=== PATIENT | female | born 1955 | race Caucasian/White ===

== ENCOUNTER 2023-12-18 12:07 | Emergency (ER) | payer OTHER, SELFPAY ==
[2023-12-18 13:06] LABS: Absolute Basophils 0.1 K/uL (0-0.5); Absolute Eosinophils 0.1 K/uL (0-0.5); Absolute Lymphocytes (CBC) 3.1 K/uL (0.7-4.9); Absolute Monocytes 0.5 K/uL (0.1-1.3); Basophils % 1.8 % (0-1.3); Eosinophils % 1.1 % (0-4.4); Hematocrit 32.1 % (36.0-45.0); Hemoglobin 10.6 g/dL (12.0-15.0); Lymphocytes % 54.1 % (15.3-44.8); MCH 30.4 pg (27.0-35.0); MCHC 33.1 g/dL (32.0-36.0); MCV 91.8 fL (80-100); MPV 8.6 fL (7.6-11.3); Monocytes % 8.1 % (3.3-12.3); Neutrophils % 34.9 % (41.7-73.7); Platelets 322 thou/uL (152-406); Red Cell Distribution Width 12.7 % (12.1-15.2)
[2023-12-18 13:24] LABS: Albumin 2.7 g/dL (3.4-5.0); Albumin/Globulin Ratio 0.6 (1.1-1.8); Anion Gap 7.6 mEq/L (5.0-15.0); Bilirubin Total 7.9 mg/dL (0.2-1.0); Globulin 4.2 g/dL (2.3-3.5); Potassium 3.6 mEq/L (3.5-5.1); Protein, Total 6.9 g/dL (6.4-8.2)
--- NOTE | 2023-12-18 13:44 | RAD REPORT ---
EXAM DESCRIPTION: CTAbdomen Pelvis W Contrast - 12/18/2023 1:34 pm CLINICAL HISTORY: jaundice, painless COMPARISON: No comparisons TECHNIQUE: CT of the abdomen and pelvis was performed with IV contrast. All CT scans are performed using dose optimization technique as appropriate and may include automated exposure control or mA/KV adjustment according to patient size. FINDINGS: Lower chest: No acute abnormality. Small hiatal hernia. Mild circumferential thickening of the distal esophagus likely reflecting esophagitis. Liver: Severe intrahepatic biliary ductal dilatation. No suspicious liver mass. Biliary: Severe extrahepatic biliary ductal dilatation. The common bile duct measures 18 millimeters . There is an abrupt transition at the distal common bile duct. Stomach: No significant focal abnormality. Duodenum: No significant focal abnormality. Pancreas: No significant abnormality. Spleen: No significant abnormality. Adrenal: No suspicious lesions. Kidney/ureter: No hydronephrosis. No renal calculi. Retroperitoneum: No retroperitoneal adenopathy. Vascular: No aneurysm. Bowel: No significant focal abnormality. Peritoneum: No ascites or free air. Bladder: Grossly unremarkable. Reproductive: No adnexal masses. Bones: No acute fracture. Other: n/a IMPRESSION: Intra and extrahepatic biliary duct dilatation concerning for either stricture or lesion such as cholangiocarcinoma at the distal common bile duct. No discrete pancreatic mass or pancreatic ductal dilatation identified. Recommend ERCP for further evaluation.
--- NOTE | 2023-12-18 13:47 | RAD REPORT ---
EXAM DESCRIPTION: US - Liver Only - 12/18/2023 1:18 pm CLINICAL HISTORY: jaundice COMPARISON: No comparisons FINDINGS: Intra extrahepatic biliary duct dilatation. The common bile duct is dilated down to the [place] the pancreatic head measuring 2 cm. The gallbladder is distended. No gallstones identified or aurelio dence of acute cholecystitis. The spleen is normal in size. No focal liver mass identified . IMPRESSION: Intra and extrahepatic biliary duct dilatation. Correlating with the same-day CT, this i s concerning for either stricture or malignancy at the distal common bile duct/pancreatic head.
--- NOTE | 2023-12-18 14:13 | EDPHYS ---
Physician Documentation [facility] Name: Mariangel Soto Age: 68 yrs Sex: Female : 1955 Arrival Date: 12/18/2023 Time: 12:07 Bed 7 Private MD: ED Physician Finn Chiang HPI: 12/17 14:09 This 68 yrs old Female presents to ER via Ambulatory with complaints of Abnormal rn corrections Results. 14:09 Patient reports yellowing of the skin over the last week or so. PCP obtained liver rn function test that are elevated. Patient reports fatigue and malaise as well as unintentional weight loss. No abdominal pain. No history of biliary problems or procedure. Does not drink. No history of pancreatitis or hepatitis.. Onset: The symptoms/episode began/occurred 2 week(s) ago. Severity of symptoms: At their worst the symptoms were moderate in the emergency department the symptoms are unchanged. The patient has not experienced similar symptoms in the past. The patient has been recently seen by a physician:. Historical: - Allergies: 12:27 No Known Allergies; ll1 - PMHx: 12:27 Hypertensive disorder; Hypercholesterolemia; arrhythmias; ll1 - PSHx: 12:27 tubal ligation; ll1 - Immunization history:: Adult Immunizations up to date. - Infectious Disease History:: Denies. - Social history:: Smoking status: Patient denies any tobacco usage or history of. - Family history:: not pertinent. - Hospitalizations: : No recent hospitalization is reported. ROS: 14:09 Constitutional: Positive for weight loss, negative for fever Cardiovascular: Negative rn for chest pain, palpitations, and edema, Respiratory: Negative for shortness of breath, cough, wheezing, and pleuritic chest pain, Abdomen/GI: Negative for abdominal pain, nausea, vomiting, diarrhea, and constipation, MS/Extremity: Negative for injury and deformity, Skin: Positive for yellowing of the skin Neuro: Negative for headache, weakness, numbness, tingling, and seizure, Exam: 14:09 Constitutional: This is a well developed, well nourished patient who is awake, alert, rn and in no acute distress. Head/Face: Normocephalic, atraumatic. Eyes: Positive for scleral icterus Cardiovascular: Regular rate and rhythm. No pulse deficits. Respiratory: No increased work of breathing, no retractions or nasal flaring. Abdomen/GI: Soft, non-tender Skin: Positive for jaundice MS/ Extremity: Pulses equal, no cyanosis. Neuro: Awake and alert, GCS 15 Vital Signs: 12:28 BP 136 / 58; Pulse 65; Resp 16; Temp 98.9; Pulse Ox 100% ; Weight 65.77 kg; Height 5 ll1 ft. 3 in. ; Pain 2/10; 15:30 BP 117 / 65; Pulse 59; Resp 18; Temp 98.6; Pulse Ox 98% on R/A; ap3 16:36 BP 111 / 41; Pulse 57; Resp 17; Pulse Ox 97% ; ap3 12:28 Body Mass Index 25.69 (65.77 kg, 160.02 cm) ll1 12:28 Pain Scale: Adult ll1 MDM: 12:16 Patient medically screened. rn 14:09 Differential Diagnosis Pancreatic mass, pancreatic cancer, cholangiocarcinoma, biliary rn obstruction, hepatitis. Data reviewed: vital signs, nurses notes, lab test result(s), radiologic studies, CT scan, and as a result, I will admit patient. Consideration of Admission/Observation Patient was admitted/placed on observation. Escalation of care including admission/observation considered. Counseling: I had a detailed discussion with the patient and/or guardian regarding the historical points, exam findings, and any diagnostic results supporting the discharge/admit diagnosis, lab results, radiology results, the need to transfer to another facility, for higher level of care, [facility] does not immediately have the required specialist. 12/17 12:30 Order name: CBC with Diff; Complete Time: 13:33 rn 12/17 12:30 Order name: CMP; Complete Time: 13:33 rn 12/17 12:30 Order name: Lipase; Complete Time: 13:33 rn 12/17 12:30 Order name: Hepatitis Panel; Complete Time: 14:55 rn 12/17 12:30 Order name: CT Abd/Pelvis - IV Contrast Only; Complete Time: 13:47 rn 12/17 12:48 Order name: Liver Only; Complete Time: 13:47 EDMS 12/17 12:30 Order name: IV Saline Lock; Complete Time: 13:03 rn 12/17 12:30 Order name: Labs collected and sent; Complete Time: 13:03 rn Administered Medications: No medications were administered Disposition Summary: 12/18/23 14:13 Transfer Ordered Notes: Transfer Location: [facility] rn Reason: Higher level of care rn Condition: Stable rn Problem: new rn Symptoms: are unchanged rn Accepting Physician: (12/18/23 16:38) ap3 Diagnosis - Unspecified jaundice rn - Obstruction of bile duct rn Forms: - Medication Reconciliation Form rn - SBAR form rn Signatures: Dispatcher [employer] EDMS Finn Chiang MD MD rn Prokisch, Amanda, RN RN ap3 Diony Stewart RN RN ll1 Corrections: (The following items were deleted from the chart) 12:30 12:30 CBC+H.LAB.BRZ ordered. EDMS EDMS 12:30 12:30 COMPREHENSIVE METABOLIC PANEL+C.LAB.BRZ ordered. EDMS EDMS 12:30 12:30 LIPASE+C.LAB.BRZ ordered. EDMS EDMS 12:48 12:30 Abdomen Limited+US.RAD.BRZ ordered. EDGA EDMS 16:38 14:13 rn ap3
--- NOTE | 2023-12-18 14:13 | ER ---
Nurse's Notes [facility] Name: Mariangel Soto Age: 68 yrs Sex: Female : 1955 Arrival Date: 12/18/2023 Time: 12:07 Bed 7 Private MD: Diagnosis: Unspecified jaundice;Obstruction of bile duct Presentation: 12/17 12:28 Chief complaint: Patient states: Elevated liver enzymes, sent for further eval. ll1 Coronavirus screen: Client denies travel out of the [place] in the last 14 days. At this time, the client does not indicate any symptoms associated with coronavirus-19. Ebola Screen: Patient denies travel to an Ebola-affected area in the 21 days before illness onset. Initial Sepsis Screen: Does the patient meet any 2 criteria? No. Patient's initial sepsis screen is negative. Does the patient have a suspected source of infection? No. Patient's initial sepsis screen is negative. Risk Assessment: Do you want to hurt yourself or someone else? Patient reports no desire to harm self or others. Onset of symptoms was December 18, 2023. 12:28 Method Of Arrival: Ambulatory ll1 12:28 Acuity: OSCAR 3 ll1 Historical: - Allergies: 12:27 No Known Allergies; ll1 - PMHx: 12:27 Hypertensive disorder; Hypercholesterolemia; arrhythmias; ll1 - PSHx: 12:27 tubal ligation; ll1 - Immunization history:: Adult Immunizations up to date. - Infectious Disease History:: Denies. - Social history:: Smoking status: Patient denies any tobacco usage or history of. - Family history:: not pertinent. - Hospitalizations: : No recent hospitalization is reported. Screenin:35 [facility] ED Fall Risk Assessment (Adult) History of falling in the last 3 months, ap3 including since admission No falls in past 3 months (0 pts) Confusion or Disorientation No (0 pts) Intoxicated or Sedated No (0 pts) Impaired Gait No (0 pts) Mobility Assist Device Used No (0 pt) Altered Elimination No (0 pt) Score/Fall Risk Level 0 - 2 = Low Risk Oriented to surroundings, Maintained a safe environment, Educated pt \T\ family on fall prevention, incl call for assistance when getting out of bed, Assessed \T\ reinforced patient's understanding of fall precautions, Provided non-skid footwear, Hourly rounding (assess needs \T\ fall precautionary measures) done, Used ambulatory aids as needed (educated on \T\ assisted with), Used gait belt as appropriate. Abuse screen: Denies threats or abuse. Nutritional screening: No deficits noted. Tuberculosis screening: No symptoms or risk factors identified. Assessment: 13:03 General: Appears in no apparent distress. Behavior is calm, cooperative, appropriate ap3 for age. Pain: Denies pain. Neuro: Level of Consciousness is awake, alert, obeys commands, Oriented to person, place, time, situation, Appropriate for age. Cardiovascular: Patient's skin is warm and dry. Respiratory: Airway is patent Respiratory effort is even, unlabored, Respiratory pattern is regular, symmetrical. :. Derm: Skin is jaundiced. Vital Signs: 12:28 BP 136 / 58; Pulse 65; Resp 16; Temp 98.9; Pulse Ox 100% ; Weight 65.77 kg; Height 5 ll1 ft. 3 in. ; Pain 2/10; 15:30 BP 117 / 65; Pulse 59; Resp 18; Temp 98.6; Pulse Ox 98% on R/A; ap3 16:36 BP 111 / 41; Pulse 57; Resp 17; Pulse Ox 97% ; ap3 12:28 Body Mass Index 25.69 (65.77 kg, 160.02 cm) ll1 12:28 Pain Scale: Adult ll1 ED Course: 12:10 Patient arrived in ED. rg4 12:10 Arm band placed on Patient placed in an exam room, on a stretcher. ll1 12:16 Finn Chiang MD is Attending Physician. rn 12:29 Triage completed. ll1 13:03 Yamilet Garcia, RN is Primary Nurse. ap3 13:03 Initial lab(s) drawn, by me, sent to lab. Inserted saline lock: 22 gauge in right ap3 antecubital area, using aseptic technique. Blood collected. 13:20 Liver Only In Process Unspecified. EDMS 13:35 CT Abd/Pelvis - IV Contrast Only In Process Unspecified. EDMS 14:15 Initiated transfer with [facility] transfer center spoke with [email or web address] [email or web address] 14:55 Cachorro the clinical training coordinator returned call to initiate doc to doc report with ER Dr. matt Chiang and Hospitalist Dr Garrido from [facility]. 16:35 Provided Education on: need for transfer . ap3 16:35 No provider procedures requiring assistance completed. Patient transferred, IV remains ap3 in place. 16:36 Patient has correct armband on for positive identification. Bed in low position. Call ap3 light in reach. Side rails up X2. Administered Medications: No medications were administered Medication: 16:36 VIS not applicable for this client. ap3 Outcome: 14:13 ER care complete, transfer ordered by . rn 16:35 Transferred by ground EMS to [facility], ap3 16:35 Condition: good 16:35 Discharge instructions given to patient, Instructed on the need for transfer, Demonstrated understanding of instructions, 16:38 Patient left the ED. ap3 Signatures: Dispatcher [employer] EDMS Finn Chiang MD MD rn Garcia, Rubi rg4 Yamilet Garcia RN JARED [email or web address] Diony Stewart RN RN 1 Vera Gonzalez jr Corrections: (The following items were deleted from the chart) 14:55 14:15 Initiated transfer with [facility] transfer center spoke with Petr... [id number] [email or web address]
[2023-12-18 14:45] LABS: Hepatitis B Core IgM Nonreactive (Nonreactive); Hepatitis B surface AG Interp. Nonreactive (Nonreactive); Hepatitis C Virus Ab Nonreactive (Nonreactive)
[2023-12-18 14:46] LABS: HBsAG Nonreactive Report Report
[2023-12-18 17:12] VITALS: BP 111/41; TEMP 98.6; O2SAT 97
== END 2023-12-18 16:38 | disposition short-term general hospital (02) ==
LOC: ER 12:07
DX: K83.1 Obstruction of bile duct (principal)
CPT/HCPCS: 85025; 36415; 83690; 80053; 80074; 74177; 76705; 99285; Q9967